=== PATIENT | female | born 1990 | race Caucasian/White ===

== ENCOUNTER 2017-09-11 15:58 | Emergency (ER) | payer OTHER, MEDICAID ==
[~2017-09-11 15:58] MED LIST: ACE3 PO; AMOX-559 PO; CIP500 PO; DIC10 PO; DOC240 PO; DOXY-260 PO; GUAI-545 PO; HYDR2TAB74 PO; IBU600 PO; IBU800 PO; LACT10SO58 PO; LOR5 PO; LOR5/325 PO; MET10 PO; METR-1 PO; MISO200T62 PO; MULT1CAP41 PO; MULTIVIT; NO ROUTINE MEDS; ONDA4TAB PO; PER PO; PREN-85 PO; QUET300T17 PO; [UNRECOGNIZED DRUG - CODE] PO
[2017-09-11 16:08] VITALS: BP 137/93
[2017-09-11] MEDS ORDERED: ONDANSETRON 4 MG ODT TABDP SL ONE (16:15)
[2017-09-11] MEDS ORDERED: APAP/HYDROCODONE 325/5 TAB PO ONE (16:15)
--- NOTE | 2017-09-11 16:21 | ER Report ---
History and Physical Time Seen By MD: 16:03 Hx. of Stated Complaint: Patient hit head . Patient having visual problems. 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 Was ducking down into to get into an area and hit her head on cinderblock. No loc. Pt has had symptoms since she hit her head. + headache, + nausea, + vomiting, + intermittent blurred vision. Pt thought she would feel better by now but still feeling poorly so came to ed. Pt denies neck pain. no extremity pain or weakness. Pt has hx of headaches but feels this is worse. Pt took nothing for pain or symptoms at home REVIEW OF SYSTEMS: Constitutional: No fever, no chills. Eyes: No discharge, + blurred vision ENT: No sore throat. Cardiovascular: No chest pain, no palpitations. Respiratory: No cough, no shortness of breath. Gastrointestinal: No abdominal pain, +nausea, + vomiting. Genitourinary: No hematuria. Musculoskeletal: No back pain. Skin: No rashes. Neurological: + headache. Allergies: Coded Allergies: No Known Drug Allergies (Verified , 01/10/17) Home Meds Discontinued Reported Medications Mifepristone (MIFEPREX) 200 Mg Tablet, 200 MG PO 01/10/17 Misoprostol (MISOPROSTOL) 200 Mcg Tablet, 200 MCG PO 01/10/17 Discontinued Scripts Hydromorphone Hcl (DILAUDID) 2 Mg Tablet, 2 MG PO Q4H Y for PAIN, #10 Prov:JESSICAWALTER DO 01/10/17 Amoxicillin/Pot Clav 875-125 Mg Tab (AUGMENTIN 875-125 TABLET) 1 Each Tablet, 1 TAB PO Q12H for infection, #14 TAB TAKE ONE TABLET BY MOUTH EVERY 12 HOURS Prov:JESSICAWALTER Ben DO 01/10/17 Past Medical/Surgical History pmhx: headaches Pshx: neg Reviewed Nurses Notes: Yes Old Medical Records Reviewed: Yes Hx Smoking: Yes Hx Substance Use Disorder: No Hx Alcohol Use: Yes (OCC) Constitutional Vital Sign - Last 24 Hours 09/11/17 16:08 Temp 98.7 Pulse 84 Resp 18 B/P (MAP) 137/93 Pulse Ox 96 O2 Delivery Room Air Physical Exam General Appearance: The patient is alert, has no immediate need for airway protection and no signs of toxicity. Eyes: Pupils equal and round no pallor or injection, EOMI, nl fundus b/l ENT: no pharyngeal erythema or exudates, Mucous membranes are moist, TM are nl b/l, neg hemotympanums Respiratory: There are no retractions, lungs are clear to auscultation. Cardiovascular: Regular rate and rhythm. pulses are equal and symmetrical Gastrointestinal: Abdomen is soft and non tender, no masses, bowel sounds normal, no guarding, no rigidity or rebound Neurological: Cranial nerves II-XII grossly intact, no sensory or motor loss Skin: Warm and dry, no rashes. Musculoskeletal: Neck is supple non tender, no vertebral tenderness Extremities are nontender, non swollen and have full range of motion. DIFFERENTIAL DIAGNOSIS: After history and physical exam differential diagnosis was considered for concussion, closed head injury, intracranial bleed Medical Decision Making ED Course/Re-evaluation ED Course 09/11/2017 5:14:46 pm Decision to Disposition Date: Sep 11, 2017 Decision to Disposition Time: 17:14 Depart Departure Latest Vital Signs Vital Signs Date Time Temp Pulse Resp B/P (MAP) Pulse Ox O2 Delivery O2 Flow Rate FiO2 09/11/17 16:08 98.7 84 18 137/93 96 Room Air Impression: Primary Impression: Concussion Condition: Improved Disposition: HOME OR SELF-CARE New Scripts Ondansetron (ZOFRAN ODT) 4 Mg Tab.rapdis 4 MG PO Q6-8H Y for NAUSEA/VOMITING, #15 TAB.MAGY Prov: JARETT ALDRIDGE V DO 09/11/17 Hydrocodone Bit/Acetaminophen (HYDROCODON-ACETAMINOPHEN 5-325) 1 Each Tablet 1 EACH PO Q4-6H Y for PAIN/HEADACHE, #10 TAB Prov: JARETT ALDRIDGE V DO 09/11/17 Departure Forms: ER Transition Record, Medications Reconciliation, Off Work/ School Form, School or Work Release?: Work Number of days to be released: 2 Patient Portal Information Patient Instructions: Concussion (GEN) Additional Instructions: zofran every 6 hours as needed for nausea Motrin (advil, ibuprofen) 600mg every 6 hours as needed for pain Lortab one every 6 hours as needed for severe pain. Follow up with your doctor. Problem Qualifiers Primary Impression: Concussion Encounter type: initial encounter Loss of consciousness presence/duration: without LOC Qualified Codes: S06.0X0A - Concussion without loss of consciousness, initial encounter JARETT ALDRIDGE DO Sep 11, 2017 16:21
--- NOTE | 2017-09-11 17:05 | RADIOLOGY IMAGING REPORT ---
FACILITY: [facility] PATIENT NAME: Elyssa Shah : 1990 MR: [id number] V: [id number] EXAM DATE: ORDERING PHYSICIAN: JARETT ALDRIDGE TECHNOLOGIST: Location: [facility] Patient: Elyssa Shah : 1990 Visit/Account:[id number] Date of Sevice: 09/11/2017 EXAMINATION: Head CT without intravenous contrast HISTORY: Hit head 5 days ago. Still with headache and vomiting. COMPARISON: None. TECHNIQUE: Contiguous axial images were obtained from the skull base to the vertex without intraven ous contrast. Sagittal and coronal reformatted images are also submitted. One of the following dose optimization techniques was utilized in the performance of this exam: Autom ated exposure control; adjustment of the mA and/or kV according to the patient's size; or use of an i terative reconstruction technique. Specific details can be referenced in the facility's radiology C T exam operational policy. FINDINGS: Brain and intracranial structures: Ventricles, sulci, and cisterns are normal in size. Zepeda-white ma tter differentiation is maintained. No midline shift, acute hemorrhage, acute infarct, or mass. Calvarium / scalp: Negative. No acute fracture. Skull base / visualized face: Negative. Visualized sinuses / orbits: Trace mucosal thickening in the maxillary sinuses and ethmoid air cells . IMPRESSION: No acute intracranial abnormality. Report Dictated By: Justin Reynoso MD at 09/11/2017 4:55 PM Report E-Signed By: Justin Reynoso MD at 09/11/2017 5:01 PM WSN:[id number]
[2017-09-11] MEDS ORDERED: ONDA4TAB PO (17:16)
[2017-09-11] MEDS ORDERED: LOR5/325 PO (17:16)
== END 2017-09-11 17:33 | disposition home or self-care (01) ==
LOC: ER 16:14
DX: S06.0X0A Concussion without loss of consciousness, initial encounter (principal)
CPT/HCPCS: 70450; 99283; S0119

== ENCOUNTER 2017-10-27 13:47 | Emergency (ER) | payer MEDICAID ==
[2017-10-27] MEDS ORDERED: NS(*) 0.9% 1000 ML BAG 1,000 ML IV ONE (13:56)
--- NOTE | 2017-10-27 13:58 | ER Report ---
History and Physical Time Seen By MD: 13:56 HPI/ROS CHIEF COMPLAINT: Right upper quadrant abdominal pain HISTORY OF PRESENT ILLNESS: 19 atrial female comes emergency Department today with 2 years of right upper quadrant pain mostly postprandial's been coming and going shortness of her family practice doctor today was concerned about at this point decided center rushed to emergency room for this pain she's had for over 2 years. Patient denies any nausea vomiting or diarrhea but has had some bilious emesis the last 48 hours patient denies any chest pain or shortness of breath or additional complaints is localized the right upper quadrant dull and aching sharp and stabbing with increased palpation to the area patient states that does happen usually after she eats about 30-45 minutes REVIEW OF SYSTEMS: Respiratory: No cough, no dyspnea. Cardiovascular: No chest pain, no palpitations. Gastrointestinal: Right upper quadrant abdominal pain Musculoskeletal: No back pain. Remainder of the 14 system rev: Yes Allergies: Coded Allergies: No Known Drug Allergies (Verified , 10/27/17) Home Meds Discontinued Scripts Ondansetron (ZOFRAN ODT) 4 Mg Tab.rapdis, 4 MG PO Q6-8H Y for NAUSEA/VOMITING, # 15 TAB.MAGY Prov:JARETT ALDRIDGE V DO 09/11/17 Hydrocodone Bit/Acetaminophen (HYDROCODON-ACETAMINOPHEN 5-325) 1 Each Tablet, 1 EACH PO Q4-6H Y for PAIN/HEADACHE, #10 TAB Prov:JARETT ALDRIDGE V DO 09/11/17 Reviewed Nurses Notes: Yes Old Medical Records Reviewed: Yes Hx Smoking: Yes Hx Substance Use Disorder: No Hx Alcohol Use: Yes (OCC) Constitutional Vital Sign - Last 24 Hours 10/27/17 10/27/17 10/27/17 10/27/17 13:50 13:54 14:00 14:05 Temp 98.5 Pulse 60 Resp 16 B/P (MAP) 121/68 121/68 (85) 109/63 (78) Pulse Ox 98 95 O2 Delivery Room Air 10/27/17 10/27/17 10/27/17 10/27/17 14:15 14:25 14:30 14:35 Pulse 74 73 70 63 B/P (MAP) 102/72 (82) Pulse Ox 96 93 92 10/27/17 10/27/17 10/27/17 14:40 14:45 14:55 Pulse 52 55 44 Pulse Ox 98 98 Physical Exam General Appearance: The patient is alert, has no immediate need for airway protection and no current signs of toxicity. [ ] Eyes: Pupils equal and round no injection. Respiratory: Chest is non tender, lungs are clear to auscultation. Cardiac: regular rate and rhythm [ ] Gastrointestinal: Pain with deep palpation right upper quadrant positive McBurney some mild pain to the epigastric area otherwise unremarkable no masses lesions no rebound or guarding Musculoskeletal: Neck: Neck is supple and non tender. Extremities have full range of motion and are non tender. Skin: No rashes or lesions. [ ] DIFFERENTIAL DIAGNOSIS: After history and physical exam differential diagnosis was considered for biliary colic cholelithiasis choledocholithiasis choline- induced pancreatitis gastritis Medical Decision Making Data Points Result Diagram: 10/27/17 1356 10/27/17 1356 Laboratory Hematology Test 10/27/17 13:52 10/27/17 13:56 Urine Color Yellow Urine Clarity Clear Urine pH 6.0 pH (4.8-9.5) Urine Specific Mobile 1.013 Urine Protein Negative mg/dL (NEGATIVE) Urine Glucose (UA) Negative mg/dL (NEGATIVE) Urine Ketones Negative mg/dL (NEGATIVE) Urine Blood Negative (NEGATIVE) Urine Nitrite Negative (NEGATIVE) Urine Bilirubin Negative (NEGATIVE) Urine Urobilinogen Negative mg/dL (0.2-1.9) Urine Leukocyte Esterase Negative (NEGATIVE) Urine RBC <1 /HPF (0-2/HPF) Urine WBC <1 /HPF (0-5/HPF) Urine Squamous Epithelial Cells Few /LPF (</=FEW) Urine Bacteria Negative /HPF (NONE-FEW) Urine Mucus None /HPF (NONE-FEW) Urine HCG, Qualitative Negative (NEGATIVE) Red Blood Count 5.45 M/uL (4.17-5.56) Mean Corpuscular Volume 89.3 fL (80.0-96.0) Mean Corpuscular Hemoglobin 31.2 pg (26.0-33.0) Mean Corpuscular Hemoglobin Concent 34.9 g/dL (32.0-36.0) Red Cell Distribution Width 12.7 % (11.5-14.5) Mean Platelet Volume 8.3 fL (7.2-11.1) Neutrophils (%) (Auto) 63.7 % (39.4-72.5) Lymphocytes (%) (Auto) 27.4 % (17.6-49.6) Monocytes (%) (Auto) 5.3 % (4.1-12.4) Eosinophils (%) (Auto) 2.9 % (0.4-6.7) Basophils (%) (Auto) 0.7 % (0.3-1.4) Nucleated RBC Relative Count (auto) 0.1 /100WBC Neutrophils # (Auto) 5.3 K/uL (2.0-7.4) Lymphocytes # (Auto) 2.3 K/uL (1.3-3.6) Monocytes # (Auto) 0.4 K/uL (0.3-1.0) Eosinophils # (Auto) 0.2 K/uL (0.0-0.5) Basophils # (Auto) 0.1 K/uL (0.0-0.1) Nucleated RBC Absolute Count (auto) 0.01 K/uL Prothrombin Time 12.1 seconds (12.0-14.4) Prothromb Time International Ratio 0.89 Activated Partial Thromboplast Time 26 seconds (23-35) Sodium Level 138 mmol/L (137-145) Potassium Level 4.1 mmol/L (3.5-5.0) Chloride Level 103 mmol/L (98-107) Carbon Dioxide Level 23 mmol/L (22-31) Blood Urea Nitrogen 13 mg/dl (7-18) Creatinine 0.70 mg/dl (0.52-1.04) Glomerular Filtration Rate Calc > 60.0 Random Glucose 85 mg/dl (75-110) Calcium Level 9.2 mg/dl (8.4-10.2) Total Bilirubin 0.6 mg/dl (0.2-1.3) Aspartate Amino Transf (AST/SGOT) 30 U/L (0-35) Alanine Aminotransferase (ALT/SGPT) 54 U/L (0-56) Alkaline Phosphatase 81 U/L (0-126) Total Protein 8.3 gm/dl (6.3-8.2) Albumin 4.6 g/dl (3.5-5.0) Lipase 63 U/L (23-300) Serum Alcohol < 10 mg/dl Chemistry Test 10/27/17 13:52 10/27/17 13:56 Urine Color Yellow Urine Clarity Clear Urine pH 6.0 pH (4.8-9.5) Urine Specific Mobile 1.013 Urine Protein Negative mg/dL (NEGATIVE) Urine Glucose (UA) Negative mg/dL (NEGATIVE) Urine Ketones Negative mg/dL (NEGATIVE) Urine Blood Negative (NEGATIVE) Urine Nitrite Negative (NEGATIVE) Urine Bilirubin Negative (NEGATIVE) Urine Urobilinogen Negative mg/dL (0.2-1.9) Urine Leukocyte Esterase Negative (NEGATIVE) Urine RBC <1 /HPF (0-2/HPF) Urine WBC <1 /HPF (0-5/HPF) Urine Squamous Epithelial Cells Few /LPF (</=FEW) Urine Bacteria Negative /HPF (NONE-FEW) Urine Mucus None /HPF (NONE-FEW) Urine HCG, Qualitative Negative (NEGATIVE) White Blood Count 8.4 k/uL (4.5-11.0) Red Blood Count 5.45 M/uL (4.17-5.56) Hemoglobin 17.0 g/dL (12.0-16.0) Hematocrit 48.7 % (34.0-47.0) Mean Corpuscular Volume 89.3 fL (80.0-96.0) Mean Corpuscular Hemoglobin 31.2 pg (26.0-33.0) Mean Corpuscular Hemoglobin Concent 34.9 g/dL (32.0-36.0) Red Cell Distribution Width 12.7 % (11.5-14.5) Platelet Count 253 K/uL (150-450) Mean Platelet Volume 8.3 fL (7.2-11.1) Neutrophils (%) (Auto) 63.7 % (39.4-72.5) Lymphocytes (%) (Auto) 27.4 % (17.6-49.6) Monocytes (%) (Auto) 5.3 % (4.1-12.4) Eosinophils (%) (Auto) 2.9 % (0.4-6.7) Basophils (%) (Auto) 0.7 % (0.3-1.4) Nucleated RBC Relative Count (auto) 0.1 /100WBC Neutrophils # (Auto) 5.3 K/uL (2.0-7.4) Lymphocytes # (Auto) 2.3 K/uL (1.3-3.6) Monocytes # (Auto) 0.4 K/uL (0.3-1.0) Eosinophils # (Auto) 0.2 K/uL (0.0-0.5) Basophils # (Auto) 0.1 K/uL (0.0-0.1) Nucleated RBC Absolute Count (auto) 0.01 K/uL Prothrombin Time 12.1 seconds (12.0-14.4) Prothromb Time International Ratio 0.89 Activated Partial Thromboplast Time 26 seconds (23-35) Glomerular Filtration Rate Calc > 60.0 Calcium Level 9.2 mg/dl (8.4-10.2) Total Bilirubin 0.6 mg/dl (0.2-1.3) Aspartate Amino Transf (AST/SGOT) 30 U/L (0-35) Alanine Aminotransferase (ALT/SGPT) 54 U/L (0-56) Alkaline Phosphatase 81 U/L (0-126) Total Protein 8.3 gm/dl (6.3-8.2) Albumin 4.6 g/dl (3.5-5.0) Lipase 63 U/L (23-300) Serum Alcohol < 10 mg/dl Coagulation Test 10/27/17 13:56 Prothrombin Time 12.1 seconds Prothromb Time International Ratio 0.89 Activated Partial Thromboplast Time 26 seconds Toxicology Test 10/27/17 13:56 Serum Alcohol < 10 mg/dl Urinalysis Test 10/27/17 13:52 Urine Color Yellow Urine Clarity Clear Urine pH 6.0 pH (4.8-9.5) Urine Specific Mobile 1.013 Urine Protein Negative mg/dL (NEGATIVE) Urine Glucose (UA) Negative mg/dL (NEGATIVE) Urine Ketones Negative mg/dL (NEGATIVE) Urine Blood Negative (NEGATIVE) Urine Nitrite Negative (NEGATIVE) Urine Bilirubin Negative (NEGATIVE) Urine Urobilinogen Negative mg/dL (0.2-1.9) Urine Leukocyte Esterase Negative (NEGATIVE) Urine RBC <1 /HPF (0-2/HPF) Urine WBC <1 /HPF (0-5/HPF) Urine Squamous Epithelial Cells Few /LPF (</=FEW) Urine Bacteria Negative /HPF (NONE-FEW) Urine Mucus None /HPF (NONE-FEW) Urine HCG, Qualitative Negative (NEGATIVE) ED Course/Re-evaluation ED Course ED course is dictated below Re-evaluation ED clinical course medical decision making 19-year-old female with right upper quadrant epigastric pain ultrasound was negative chest x-ray normal rest for labs are unremarkable including lipase is most likely is a for gastritis advised her to eat intermediate project manager meals with less spicy foods and follow up with primary care Decision to Disposition Date: Oct 27, 2017 Decision to Disposition Time: 15:35 Depart Departure Latest Vital Signs Vital Signs Date Time Temp Pulse Resp B/P (MAP) Pulse Ox O2 Delivery O2 Flow Rate FiO2 10/27/17 14:55 44 98 10/27/17 14:30 102/72 (82) 10/27/17 13:50 98.5 16 Room Air Impression: Primary Impression: Gastritis Condition: Improved Disposition: HOME OR SELF-CARE Referrals: MELISSA WEBER MD 5 Days New Scripts No Active Prescriptions or Reported Meds Patient Instructions: Diet for Stomach Ulcers and Gastritis (ED), Gastritis (DC ) TATA MAY MD Oct 27, 2017 13:58
[2017-10-27] MEDS ORDERED: ONDANSETRON 4 MG/2 ML VIAL IVP ONE (14:00)
[2017-10-27 14:08] LABS: PLATELET COUNT, AUTOMATED 253 K/uL (150-450)
[2017-10-27 14:19] LABS: INR 0.89
--- NOTE | 2017-10-27 14:26 | RADIOLOGY IMAGING REPORT ---
FACILITY: [facility] PATIENT NAME: Elyssa Shah : 1990 MR: [id number] V: [id number] EXAM DATE: ORDERING PHYSICIAN: TATA MAY TECHNOLOGIST: Location: [facility] Patient: Elyssa Shah : 1990 Visit/Account:[id number] Date of Sevice: 10/27/2017 CHEST PA AND LAT INDICATION: Cough COMPARISON: None available FINDINGS: The cardiac silhouette is normal in size. No pneumothorax. Clear lungs. No acute osseous abnormality. Mild leftward lumbar scoliosis. No pleural fluid. IMPRESSION: 1. No acute finding. 2. Mild lumbar scoliosis. Report Dictated By: Deshaun Rollins MD at 10/27/2017 2:22 PM Report E-Signed By: Deshaun Rollins MD at 10/27/2017 2:23 PM WSN:[id number]
--- NOTE | 2017-10-27 15:29 | RADIOLOGY IMAGING REPORT ---
[place] [facility] [place]: Elyssa Shah : 1990 MR: [id number] V: [id number] EXAM DATE: ORDERING PHYSICIAN: TATA MAY TECHNOLOGIST: [place] [facility] [place] Elyssa Shah : 1990 Visit/Account:[id number] Date of Sevice: 10/27/2017 GALLBLADDER HISTORY: Right upper quadrant pain x2 days, vomiting x2-3 days COMPARISON: None. FINDINGS: Gallbladder: Unremarkable; no stones or sludge. Liver: Borderline enlarged although no focal mass identified. Common duct: Normal, 2.4 mm diameter. Pancreas: Partially obscured by bowel, visualized aspects unremarkable. Right kidney: Unremarkable measuring 11.3 cm in length Upper abdominal aorta and IVC: Patent. Ascites: None visualized. IMPRESSION: Borderline hepatomegaly The gallbladder appears sonographically unremarkable Report Dictated By: Nancy Castillo MD at 10/27/2017 3:22 PM Report E-Signed By: Nancy Castillo MD at 10/27/2017 3:24 PM WSN:[id number]
[2017-10-27 15:36] VITALS: BP 111/68
== END 2017-10-27 15:39 | disposition home or self-care (01) ==
LOC: ER 13:49
DX: K29.70 Gastritis, unspecified, without bleeding (principal)
CPT/HCPCS: 71046; 76705; 81001; 81025; 83690; 85025; 85610; 85730; 96374; 99284; G0480; J2405; 80320; 82040; 82247; 82310; 82374; 82435; 82565; 82947; 84075; 84132; 84155; 84295; 84450; 84460; 84520

== ENCOUNTER → 2017-11-24 | Outpatient (CLI) | payer MEDICAID ==
[~2017-11-24] MED LIST changes: +ALB18R INH; +DESO1TAB70 PO; +ESCI10TA8 PO
== END ==
LOC: LAB 14:41
PROVIDERS: ATTEND Emergency Medicine
DX: R10.9 Unspecified abdominal pain (principal)
CPT/HCPCS: 82274; 87045; 87177; 87338

== ENCOUNTER → 2017-12-06 | Outpatient (CLI) | payer MEDICAID | LOC: LAB 15:20 | PROVIDERS: ATTEND Emergency Medicine | DX: R10.9 Unspecified abdominal pain (principal); R19.7 Diarrhea, unspecified | CPT/HCPCS: 36415; 82784; 83516 ==

== ENCOUNTER 2018-04-05 12:09 | Emergency (ER) | payer SELFPAY ==
--- NOTE | 2018-04-05 12:19 | ER Report ---
History and Physical Time Seen By MD: 12:19 Hx. of Stated Complaint: pt broke tooth 7 months ago, started with pain 4 days ago HPI/ROS CHIEF COMPLAINT: Tooth pain HISTORY OF PRESENT ILLNESS: 28-year-old female patient presents to emergency room with complaint of dental pain. Patient states that she broke her tooth proximal was 7 months ago. She states she's been dealing with pain related to that intermittently for the past several months. She states that she's been having pain persistent for the past 4 days. She states the pain is worse with any type of eating or drinking. She has been doing saltwater rinses, she has been using clove with mild improvement. Patient states she is felt feverish and chills. She denies any nausea, vomiting or diarrhea. She has not been taking anything for pain, and she has a history of fatty liver disease which she attributes to alcohol abuse. Allergies: Coded Allergies: No Known Drug Allergies (Verified , 10/27/17) Home Meds Active Scripts Amoxicillin 500 Mg Tab (AMOXICILLIN 500 MG TAB) 500 Mg Tablet, 1 TAB PO Q8H, # 30 TAB Prov:ANGELICA VALLEJO VOLLEYBALL COACH 04/05/18 Discontinued Reported Medications Desogestrel-Ethinyl Estradiol (Isibloom 28 Day Tablet) 0.15 Mg-0.03 Mg Tablet, 1 TAB PO DAILY 11/22/17 Albuterol Sulfate (VENTOLIN HFA) 18 Gm Inh, 1-2 PUFF INH Q4H Y for PRN, INH 11/22/17 Escitalopram Oxalate (ESCITALOPRAM OXALATE) 10 Mg Tablet, 10 MG PO QDAY, TAB 11/22/17 Past Medical/Surgical History Patient has a past medical history of migraines, hypertension, fatty liver disease, frequent UTIs, HPV, PID, osteoarthritis, bipolar, suicide attempt. Patient has a surgical history of wisdom teeth removal. Patient has a family medical history of psychiatric problems. Reviewed Nurses Notes: Yes Hx Smoking: Yes Smoking Status: Current: Every Day Smoker Exposure to Second Hand Smoke?: Yes Hx Substance Use Disorder: No Hx Alcohol Use: No (OCC) Constitutional Vital Sign - Last 24 Hours 04/05/18 04/05/18 12:11 12:39 Temp 98.8 Pulse 71 63 Resp 20 18 B/P (MAP) 123/81 116/80 (92) Pulse Ox 96 96 O2 Delivery Room Air Room Air Physical Exam General Appearance: The patient is alert, has no immediate need for airway protection and no current signs of toxicity. ENT: Tympanic membranes are pearly-savage, auditory canals are patent, mucous membranes are moist. Patient's teeth are in poor repair, tooth #13 is broken off with the lateral half missing. Respiratory: Chest is non tender, lungs are clear to auscultation. Cardiac: regular rate and rhythm Gastrointestinal: Abdomen is soft and non tender, no masses, bowel sounds normal. DIFFERENTIAL DIAGNOSIS: After history and physical exam differential diagnosis was considered for toothache, dental abscess, infected cavity. Medical Decision Making ED Course/Re-evaluation ED Course Patient was admitted on exam room, history and physical were obtained. Differential diagnoses were considered. On examination lungs are clear, heart is regular, teeth are in poor disrepair, tooth #13 is broken with lateral half missing. I did discuss with the patient and doing a dental block. Patient refused at this time. We will go ahead and put her on amoxicillin. We discussed doing any pain medication, which patient refused. We will go ahead and discharge her home. Prescription was sent in to [facility]. I discussed with patient that the prescription should be $4. Patient verbalized understanding and agreement with plan. Decision to Disposition Date: Apr 05, 2018 Decision to Disposition Time: 12:34 Depart Departure Latest Vital Signs Vital Signs Date Time Temp Pulse Resp B/P (MAP) Pulse Ox O2 Delivery O2 Flow Rate FiO2 04/05/18 12:39 63 18 116/80 (92) 96 Room Air 04/05/18 12:11 98.8 Impression: Primary Impression: Toothache Condition: Improved Disposition: HOME OR SELF-CARE Referrals: MELISSA WEBER MD (PCP) New Scripts Amoxicillin 500 Mg Tab (AMOXICILLIN 500 MG TAB) 500 Mg Tablet 1 TAB PO Q8H, #30 TAB Prov: ANGELICA VALLEJO 04/05/18 Patient Instructions: Toothache (ED) Additional Instructions: You may take Ibuoprofen as needed for pain. Rinse mouth with warm salt water after every meal. Eat soft foods. Follow up with your dentist as soon as possible, call to make an appointment. Return to the ER if condition worsens. ANGELICA VALLEJO Apr 05, 2018 12:19
[2018-04-05] MEDS ORDERED: AMOX500T10 PO (12:35)
[2018-04-05 12:39] VITALS: BP 116/80
== END 2018-04-05 12:38 | disposition home or self-care (01) ==
LOC: ER 12:14
DX: K08.89 Other specified disorders of teeth and supporting structures (principal); I10 Essential (primary) hypertension; K70.0 Alcoholic fatty liver; F31.9 Bipolar disorder, unspecified; F17.210 Nicotine dependence, cigarettes, uncomplicated
CPT/HCPCS: 99282

== ENCOUNTER → 2018-07-13 | Outpatient (CLI) | payer MEDICAID ==
[~2018-07-13] MED LIST changes: +AMOX500T10 PO; +ESCI20TA38 PO; +LINA290C PO; +POLY17PO25 PO
== END ==
LOC: RESP 19:40
PROVIDERS: ATTEND Emergency Medicine
DX: G47.30 Sleep apnea, unspecified (principal); G47.36 Sleep related hypoventilation in conditions classified elsewhere

== ENCOUNTER 2018-07-15 16:48 | Emergency (ER) | payer MEDICAID ==
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
[2018-07-15] MEDS ORDERED: LORazepam 2 MG/ML VIAL IVP ONE (17:25)
[2018-07-15] MEDS ORDERED: IOPAMIDOL 76% 75 ML INFUS BTL 75 ML ONE (17:30)
[2018-07-15] MEDS ORDERED: NS(*) 0.9% 50 ML BAG 50 ML ONE (17:30)
[2018-07-15 17:33] LABS: PLATELET COUNT, AUTOMATED 257 K/uL (150-450)
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
[2018-07-15 19:00] VITALS: BP 116/78
== END 2018-07-15 19:06 ==
LOC: ER 17:01
DX: S60.212A Contusion of left wrist, initial encounter (principal); S50.01XA Contusion of right elbow, initial encounter; T71.9XXA Asphyxiation due to unspecified cause, initial encounter; F17.210 Nicotine dependence, cigarettes, uncomplicated
CPT/HCPCS: 70498; 73080; 73110; 81001; 84703; 85025; 99284; J2060; J7050; Q9967; 82040; 82247; 82310; 82374; 82435; 82565; 82947; 84075; 84132; 84155; 84295; 84450; 84460; 84520

== ENCOUNTER → 2018-08-20 | Outpatient (CLI) | payer MEDICAID | LOC: RESP 07:18 | PROVIDERS: ATTEND Emergency Medicine | DX: J98.4 Other disorders of lung (principal) | CPT/HCPCS: 94060; 94726; 94729 ==

== ENCOUNTER → 2018-09-19 | Outpatient (CLI) | payer MEDICAID ==
[~2018-09-19] MED LIST changes: +IBUP600T22 PO; +NIC10R INH; +NICOTROL CARTRIDGE PO
== END ==
LOC: AMB 23:56
PROVIDERS: ATTEND Nurse Practitioner
DX: S61.512A Laceration without foreign body of left wrist, initial encounter (principal); S91.332A Puncture wound without foreign body, left foot, initial encounter; X78.1XXA Intentional self-harm by knife, initial encounter
CPT/HCPCS: A0425; A0427

== ENCOUNTER 2018-09-20 00:16 | Emergency (ER) | payer MEDICAID ==
[~2018-09-20 00:16] MED LIST changes: -IBUP600T22 PO; -NIC10R INH; -NICOTROL CARTRIDGE PO
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
[2018-09-20 01:42] LABS: PLATELET COUNT, AUTOMATED 280 K/uL (150-450)
[2018-09-20 03:00] VITALS: BP 154/98
[2018-09-20] MEDS ORDERED: ESCI10TA8 PO (17:17)
[2018-09-20] MEDS ORDERED: DESO1TAB70 PO (17:17)
[2018-09-21] MEDS ORDERED: ESCI20TA38 PO (09:18)
[2018-09-21] MEDS ORDERED: IBUP600T22 PO (09:19)
[2018-09-21] MEDS ORDERED: NICOTROL CARTRIDGE PO (09:20)
[2018-09-21] MEDS ORDERED: NIC10R INH (09:20)
[2018-09-21] MEDS ORDERED: ALB18R INH (09:22)
== END 2018-09-20 03:26 ==
LOC: ER 00:36
DX: S61.512A Laceration without foreign body of left wrist, initial encounter (principal); S91.312A Laceration without foreign body, left foot, initial encounter; X78.1XXA Intentional self-harm by knife, initial encounter; F31.9 Bipolar disorder, unspecified; F20.9 Schizophrenia, unspecified; R45.851 Suicidal ideations; F10.120 Alcohol abuse with intoxication, uncomplicated
CPT/HCPCS: 12004; 80305; 81001; 81025; 83735; 84443; 85025; 99284; G0480; 80320; 80329; 82040; 82247; 82310; 82374; 82435; 82565; 82947; 84075; 84132; 84155; 84295; 84450; 84460; 84520

== ENCOUNTER 2018-09-20 02:38 | Inpatient (IN) | payer MEDICAID ==
[~2018-09-20] VITALS: Ht 172.7 cm; Wt 94.8 kg
[2018-09-20] MEDS ORDERED: OLANZapine 10 MG VIAL IM ONLY PRN (02:45)
[2018-09-20] MEDS ORDERED: OLANZapine 5 MG TAB PO PRN (02:45)
[2018-09-20] MEDS ORDERED: diphenhydrAMINE 50 MG/ML VIAL IM PRN (02:45)
[2018-09-20] MEDS ORDERED: WATER STERILE 10 ML VIAL IM ONLY PRN (02:45)
[2018-09-20] MEDS ORDERED: LORazepam 2 MG/ML VIAL IM PRN (02:45)
[2018-09-20] MEDS ORDERED: ALBUTEROL 8 GM INHALER INH PRN ×2 (02:55→07:10)
[2018-09-20] MEDS ORDERED: MAG HYD/AL HYD/SIMETH 30ML UDC PO PRN (02:55)
[2018-09-20] MEDS: ACETAMINOPHEN 325 MG TAB PO PRN ×3 (03:35→19:27)
[2018-09-20 04:02] VITALS: BP 128/95
[2018-09-20] MEDS ORDERED: NICOTINE INH SYSTEM 10 MG/INH INH PRN (04:45)
[2018-09-20] MEDS: MULTIVITAMINS TAB PO SCH (08:35)
[2018-09-20] MEDS: ESCITALOPRAM OXALATE 10 MG TAB PO SCH (10:12)
[2018-09-20] MEDS: IBUPROFEN 600 MG TAB PO PRN ×2 (10:35→19:26)
[2018-09-20] MEDS ORDERED: INFLUENZA VIRUS VAC 0.5ML SYR IM ONLY ONE (12:55)
[2018-09-20 14:11] VITALS: BP 140/84
[2018-09-20] MEDS ORDERED: DESO1TAB70 PO (17:17)
[2018-09-20] MEDS ORDERED: ESCI10TA8 PO (17:17)
[2018-09-20] MEDS ORDERED: hydrOXYzine PAMOATE 25 MG CAP PO PRN (17:30)
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
--- NOTE | 2018-09-20 18:09 | BHS - Psychiatric Evaluation ---
ER - Title 25 MHE Evaluation Title 25 Evaluation Patient Detained By: Law Enforcement Referral Source: professional: :Law Enforcement Date Patient Detained: Sep 20, 2018 Time Patient Detained: 00:03 Date Long Term Expires: Sep 24, 2018 Time Long Term Expires: 00:03 Legal Status: Police Hold: No Legal Status: Residence: [facility] Resident, State Resident Assessment Data Provided By: Patient (Patient significant other is visiting with her now.), Law Enforcement, Other Source ([facility] and [facility] professionals) HPI/ROS: From Dr. Vazquez Beckwith, "28-year-old female brought in by EMS from home after a large self-inflicted laceration was inflicted on herself over her left wrist. It extends deep into the subcutaneous tissues. Patient appears alcohol intoxicated on arrival. She admits that she has schizophrenia and that she self-inflicted this laceration as she watched herself do it." Admit due to SI or Attempt: Yes Suicide Plan: Has Plan with Access Alcohol or Drugs Involved: Yes Is Patient Info Reliable: Yes (Patient says she is upset that her circumstances became so overwhelming that she was suicidal.) Is Collateral Info Reliable: Yes Current Home Psych Meds: Zyprexa and Lexapro Mental Status Exam General Appearance: Casual, Good Eye Contact, Cooperative Speech: Clear Mood: Dysthmic/Depressed (Tears up while talking about pressured she is facing.) Affect: Sad, Tearful (Appropriate for the situation.) Thought Process: Organized, Goal Directed (Feels as though she is improving, she says.) Thought Content: Suicidal Ideation (Denies any current ideation) Cognition: Alert & Oriented-Person, Alert & Oriented-Place, Alert & Oriented- Time Memory: Immediate, Recent, Remote Insight Judgment: Poor Hallucinations: Denies Delusions: Denies Current Risk & History Current Dangerous Risk Assessm: Current Suicide Ideation (Ideation and behavior became significant and critical. ) Past Dangerous Risk Assessm: Suicide Ideation-last 6mo Prior Alcohol/Drug Abuse Admits substance use history. Previous Suicide Attempt: Past - High Lethality Previous Psychiatric Illness: Yes Previous Psychiatric Treatment: Yes Risk Assessment & Disposition Evaluated Risk Assessment: From Dr. Vazquez Beckwith, "Patient reports she's been in the care of mental health since she is 8 years old. She's been on various medications. She's had 2 previous suicidal attempts. She states that she grew up without parents. Internal medicine clinic notes note 2 previous suicide attempts 1996 and 2006, patient was hospitalized for both. There is also notation of alcoholism, PTSD, depression." Impression: Primary Impression: Depression with suicidal ideation Meets Mental Illness Req.: Yes Meets Dangerousness Req.: Yes Emergency Long Term to be: Upheld Date of Decision: Sep 20, 2018 Time of Decision: 18:09 Patient is Medically Stable at: Yes Disposition: [facility] Sep 20, 2018 18:09
[2018-09-20] MEDS ORDERED: NICOTINE CARTRIDGE 1 EA PO PRN (19:05)
[2018-09-20] MEDS ORDERED: ESTRADIOL/NORETHINDR ACETATE 1 EA TAB PO SCH (21:00)
[2018-09-21 06:32] VITALS: BP 130/85
[2018-09-21] MEDS: ESCITALOPRAM OXALATE 10 MG TAB PO SCH (08:23)
[2018-09-21] MEDS: MULTIVITAMINS TAB PO SCH (08:23)
[2018-09-21] MEDS ORDERED: ESCI20TA38 PO (09:18)
[2018-09-21] MEDS ORDERED: IBUP600T22 PO (09:19)
[2018-09-21] MEDS ORDERED: NIC10R INH (09:20)
[2018-09-21] MEDS ORDERED: NICOTROL CARTRIDGE PO (09:20)
[2018-09-21] MEDS ORDERED: ALB18R INH (09:22)
--- NOTE | 2018-09-21 15:07 | BHS Discharge Summary ---
[facility] Discharge Summary Pxvh-ul-Kuci Encounter Date: Sep 21, 2018 Ukmq-wp-Wntz Encounter Time: 09:00 Reason-Hosp/Final Diag (DSM-V): (1) Persistent depressive disorder Hospital Course & Plan: Pt was admitted to [facility] on suicide precautions. She was cooperative and engaged throughout her treatment. She consistently reported that she was not suicidal, and would not have cut her wrist if she hadn't been intoxicated. Discussed importance of sobriety. Her boyfriend who is very supportive came for team meeting. They discussed the possibility of couples therapy. She will follow up with her therapist at [facility]. We did elect to increase her lexapro dose to 20mg daily, which was well tolerated. (2) Alcohol use disorder, mild, abuse (3) Laceration of left foot Status: Acute (4) Laceration of left wrist Status: Acute Physical Exam Latest Vital Signs Vital Signs 09/20/18 09/21/18 04:02 06:32 Temp 98.4 Pulse 77 Resp 16 B/P (MAP) 130/85 (100) Pulse Ox 98 O2 Delivery Room Air Mental Status Exam General Appearance: Casual, Well Groomed, Good Eye Contact, Cooperative, Polite, Good Interaction Speech: Clear, Spontaneous, Normal Rate, Normal Rhythm, Normal Volume, Normal Tone Mood: Euthymic Affect: Full and Appropriate, Calm Thought Process: Organized, Logical, Goal Directed Thought Content: No Suicidal Ideation, No Homicidal Ideation, No Delusions, No Auditory Halllucinations, No Visual Hallucinations, No Thought Broadcasting, No Ideas of Reference, No Obsessions, No Compulsions, No Other Sensorium: Clear Cognition: Alert & Oriented-Person, Alert & Oriented-Place, Alert & Oriented- Time Memory: Immediate, Recent, Remote Intelligence: Average Insight Judgment: Fair Departure Condition: Improved Discharge to: Home Discharge Instructions Home Meds Reported Medications Albuterol Sulfate (VENTOLIN HFA) 18 Gm Inh, 2 PUFF INH Q6H PRN for SHORTNESS OF BREATH, INH 09/21/18 Nicotine (NICOTROL) 10 Mg/Inh Ctr, 10 MG INH PRN PRN for NICOTINE REPLACEMENT 09/21/18 [Nicotrol Cartridge] No Conflict Check, 1 EA PO PRN PRN for NICOTINE REPLAC EMENT 09/21/18 Ibuprofen (IBUPROFEN) 600 Mg Tablet, 1 TAB PO Q6H PRN for PAIN, TAB 2/1/19 Escitalopram Oxalate (LEXAPRO) 20 Mg Tablet, 20 MG PO QAM, TAB 09/21/18 Desogestrel-Ethinyl Estradiol (Isibloom 28 Day Tablet) 0.15 Mg-0.03 Mg Tablet, 1 TAB PO QDAY 09/20/18 Discontinued Scripts Escitalopram Oxalate (LEXAPRO) 20 Mg Tablet, 10 MG PO QDAY, #90 TAB 3 Refills Prov:MELISSA WEBER MD 05/22/18 Multpiple Antipsychotics Used: No Diet: Regular Activity: As Tolerated Special Instructions: Take medications as prescribed. Follow up with outpatient provider for medication management. Follow up with outpatient therapy at [facility]. Call Crisis Line should symptoms return. YEHUDA PENNY MD Sep 21, 2018 15:07
== END 2018-09-21 10:55 | disposition home or self-care (01) | DRG 881 ==
LOC: BHS 02:38
PROVIDERS: ADMIT Psychiatry & Neurology Psychiatry; ATTEND Psychiatry & Neurology Psychiatry
DX: F34.1 Dysthymic disorder (principal); R45.851 Suicidal ideations; S61.512A Laceration without foreign body of left wrist, initial encounter; S91.312A Laceration without foreign body, left foot, initial encounter; F10.120 Alcohol abuse with intoxication, uncomplicated; Y90.4 Blood alcohol level of 80-99 mg/100 ml; Z62.810 Personal history of physical and sexual abuse in childhood; Z91.5 Personal history of self-harm; Z81.1 Family history of alcohol abuse and dependence; Z81.8 Family history of other mental and behavioral disorders; Z81.3 Family history of other psychoactive substance abuse and dependence; Z23 Encounter for immunization
CPT/HCPCS: 90674; J3535

== ENCOUNTER → 2019-01-11 | Outpatient (CLI) | payer MEDICAID ==
[~2019-01-11] MED LIST changes: +FLUT1DIS27 IH; +IBUP600T22 PO; +IBUP800T37 PO; +NIC10R INH; +NICOTROL CARTRIDGE PO
--- NOTE | 2019-01-11 15:38 | RADIOLOGY IMAGING REPORT ---
FACILITY: [facility] PATIENT NAME: Elyssa Shah : 1990 MR: [id number] V: [id number] EXAM DATE: ORDERING PHYSICIAN: CELI DAVIS TECHNOLOGIST: [place] [facility] [place] : 1990 Visit/Account:[id number] Date of Sevice: 01/11/2019 CALCANEUS (HEEL) LEFT COMPARISONS: None. ADDITIONAL PERTINENT HISTORY: Left heel pain after injury 12/21/2018 FINDINGS: Osseous structures: Moderate size plantar calcaneal spur. No bony fractures. Joint spaces: Negative. Surrounding soft tissues: Negative. IMPRESSION: 1. Moderate-sized retrocalcaneal spur. 2. No acute appearing bony abnormalities. Report Dictated By: Chilango Pina MD at 01/11/2019 3:33 PM Report E-Signed By: Chilango Pina MD at 01/11/2019 3:34 PM WSN:[id number]
== END ==
LOC: RAD 14:23
PROVIDERS: ATTEND Nurse Practitioner Primary Care
DX: M79.672 Pain in left foot (principal)

== ENCOUNTER → 2019-01-16 | Outpatient (REF) | payer MEDICAID ==
[2019-01-16 11:10] LABS: PLATELET COUNT, AUTOMATED 259 K/uL (150-450)
== END ==
PROVIDERS: ATTEND Nurse Practitioner Family
DX: R10.816 Epigastric abdominal tenderness (principal)
CPT/HCPCS: 82150; 83690; 85025; G0480; 80320; 82040; 82247; 82310; 82374; 82435; 82565; 82947; 84075; 84132; 84155; 84295; 84450; 84460; 84520

== ENCOUNTER 2019-02-28 14:40 | Emergency (ER) | payer MEDICAID ==
[2019-02-28] MEDS ORDERED: AMOXICILLIN 875 MG TAB PO ONE (16:10)
[2019-02-28] MEDS ORDERED: AMOX-362 PO (16:21)
--- NOTE | 2019-02-28 16:23 | ER Report ---
History and Physical Time Seen By MD: 15:20 Hx. of Stated Complaint: STATES HAS ABSCESSED TOOTHE HPI/ROS CHIEF COMPLAINT: Tooth pain HISTORY OF PRESENT ILLNESS: 28-year-old female presents with pain in tooth #2. She states that she has had pain for one week. She has been trying to take Tylenol, aspirin, ibuprofen and now no longer has relief. She has not eaten today because of the pain. She also feels fever and chills, and nausea. She states she vomited today due to the pain. She states she has had symptoms like this before. She has no insurance and therefore has follow-up with the [facility] next week for an intake. She also believes she is . Her last missed her period was 3 months ago. She does not want further testing for at this point. She denies vaginal bleeding and is currently getting insurance together for OB care. She did just see [facility] today. Pain is severe, radiates to cheek, ear, without swelling or discharge. REVIEW OF SYSTEMS: Respiratory: No cough, no dyspnea. Cardiovascular: No chest pain, no palpitations. Gastrointestinal: No vomiting, no abdominal pain. Musculoskeletal: No back pain. Remainder of the 14 system rev: Yes Allergies: Coded Allergies: No Known Drug Allergies (Verified , 02/28/19) Home Meds Active Scripts Amoxicillin (AMOXICILLIN) 500 Mg Capsule, 1 CAP PO Q8H for 7 Days, #21 CAPSULE 0 Refills Prov:SALAS JACOBSON MD 02/28/19 Fluticasone/Salmeterol (ADVAIR 100-50 DISKUS) 1 Each Disk.w.dev, 1 EACH IH BID, #1 INHALER 2 Refills Prov:MELISSA WEBER MD 12/05/18 Discontinued Reported Medications Nicotine (NICOTROL) 10 Mg/Inh Ctr, 10 MG INH PRN PRN for NICOTINE REPLACEMENT 09/21/18 Ibuprofen (IBUPROFEN) 600 Mg Tablet, 1 TAB PO Q6H PRN for PAIN, TAB 09/21/18 Desogestrel-Ethinyl Estradiol (Isibloom 28 Day Tablet) 0.15 Mg-0.03 Mg Tablet, 1 TAB PO QDAY 09/20/18 Discontinued Scripts Ibuprofen (IBUPROFEN) 800 Mg Tablet, 1 TAB PO Q8H PRN for PAIN, #30 TAB 0 Refills Prov:CELI DAVIS DNP, GOPHERMAN-BC 01/11/19 Albuterol Sulfate (VENTOLIN HFA) 18 Gm Inh, 2 PUFF INH Q6H PRN for SHORTNESS OF BREATH, #1 INH 3 Refills Prov:MELISSA WEBER MD 12/05/18 Escitalopram Oxalate (LEXAPRO) 20 Mg Tablet, 20 MG PO QAM, #30 TAB 0 Refills Prov:MELISSA WEBER MD 11/13/18 Hx Smoking: Yes Smoking Status: Current: Every Day Smoker Exposure to Second Hand Smoke?: Yes Hx Substance Use Disorder: No Hx Alcohol Use: Yes Constitutional Vital Sign - Last 24 Hours 02/28/19 02/28/19 14:54 16:41 Temp 98.5 Pulse 81 82 Resp 20 16 B/P (MAP) 129/82 127/72 (90) Pulse Ox 96 92 O2 Delivery Room Air Room Air Physical Exam General Appearance: The patient is alert, has no immediate need for airway protection and no current signs of toxicity. Eyes: Pupils equal and round no injection. Respiratory: normal respirations Cardiac: regular rate Musculoskeletal: Extremities have full range of motion Skin: No rashes or lesions. Dental - pt has tenderness to percussion at tooth #2 She has no swelling/fluctuance. No other edema. DIFFERENTIAL DIAGNOSIS: After history and physical exam differential diagnosis was considered for dental abscess, fracture, cellulitis, or other cause of symptoms. Medical Decision Making ED Course/Re-evaluation ED Course Pt has findings c/w periapical abscess. She has complete relief of pain with dental block. Will start amoxicillin; as this is also safe with . Procedure I performed dental block after verbal consent, using 2mL 0.5% bupivicaine, both laterally and medially. Pt had complete relief without complication Decision to Disposition Date: Feb 28, 2019 Decision to Disposition Time: 16:20 Depart Departure Latest Vital Signs Vital Signs Date Time Temp Pulse Resp B/P (MAP) Pulse Ox O2 Delivery O2 Flow Rate FiO2 02/28/19 16:41 82 16 127/72 (90) 92 Room Air 02/28/19 14:54 98.5 Impression: Primary Impression: Periapical abscess Condition: Improved Disposition: HOME OR SELF-CARE Referrals: MELISSA WEBER MD (PCP) 1 Week New Scripts Amoxicillin (AMOXICILLIN) 500 Mg Capsule 1 CAP PO Q8H for 7 Days, #21 CAPSULE 0 Refills Prov: SALAS JACOBSON MD 02/28/19 Patient Instructions: Dental Abscess (ED) Additional Instructions: As we discussed, I recommend you follow up as soon as possible with a dentist for definitive treatment. Your prescription should cost < $4 at [facility]. Please return immediately for uncontrolled pain, fevers, swelling, or any concerns. SALAS JACOBSON MD Feb 28, 2019 16:22
[2019-02-28 16:41] VITALS: BP 127/72
== END 2019-02-28 16:42 | disposition home or self-care (01) ==
LOC: ER 14:46
DX: K04.7 Periapical abscess without sinus (principal)
CPT/HCPCS: 99283

== ENCOUNTER 2019-03-02 15:50 | Emergency (ER) | payer SELFPAY ==
[~2019-03-02 15:50] MED LIST changes: +AMOX-362 PO
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
[2019-03-02 18:00] VITALS: BP 117/67
--- NOTE | 2019-03-02 18:03 | RADIOLOGY IMAGING REPORT ---
FACILITY: [facility] PATIENT NAME: Elyssa Shah : 1990 MR: [id number] V: [id number] EXAM DATE: ORDERING PHYSICIAN: ARIN FORD TECHNOLOGIST: Location: [facility] - [place] Patient: Elyssa Shah : 1990 Visit/Account:[id number] Date of Sevice: 03/02/2019 EXAMINATION: Transvaginal first trimester OB ultrasound HISTORY: Vaginal bleeding. COMPARISON: None. LMP: Uncertain. Possibly 12/23/2018, 9 weeks and 6 days.. FINDINGS: Exam is positive for a single live intrauterine . A gestational sac, yolk sac, and po le are visualized. [place]-rump length measures 0.52 cm, corresponding with a gestational age of 6 wee ks and 2 days. cardiac activity is visualized at 122 bpm. The gravid uterus is unremarkable. No discrete subchorionic hemorrhage is visualized. The right ovary measures 1.5 x 2.4 x 2.3 cm and demonstrates normal vascularity with Doppler. The lef t ovary was poorly visualized. No abnormal adnexal mass is visualized. No free fluid in the pelvis. IMPRESSION: 1. Single live intrauterine . 2. [place]-rump length corresponds with a gestational age of 6 weeks and 2 days, for an MAGY of 10/24/2019 . 3. heart rate 122 bpm. 4. No visualized subchorionic hemorrhage. 5. Unremarkable right ovary. Poor visualization of the left ovary. No free fluid in the pelvis. Report Dictated By: Richard Mcarthur MD at 03/02/2019 5:49 PM Report E-Signed By: Richard Mcarthur MD at 03/02/2019 5:57 PM WSN:[id number]
== END 2019-03-02 18:27 | disposition home or self-care (01) ==
LOC: ER 16:00
DX: O20.0 Threatened abortion (principal); Z3A.01 Less than 8 weeks gestation of pregnancy; Z37.0 Single live birth
CPT/HCPCS: 76817; 81001; 81025; 84702; 87491; 87591; 99283

== ENCOUNTER → 2019-03-18 | Outpatient (CLI) | payer MEDICAID ==
[2019-03-18 15:08] LABS: PLATELET COUNT, AUTOMATED 297 K/uL (150-450)
== END ==
LOC: LAB 13:54
PROVIDERS: ATTEND Obstetrics & Gynecology
DX: Z34.81 Encounter for supervision of other normal pregnancy, first trimester (principal)
CPT/HCPCS: 81001; 85025; 86592; 86703; 86762; 86850; 86900; 86901; 87088; 87340; 87491; 87591

== ENCOUNTER → 2019-03-21 | Outpatient (CLI) | payer MEDICAID | LOC: LAB 08:09 | PROVIDERS: ATTEND Student in an Organized Health Care Education/Training Program | DX: Z11.8 Encounter for screening for other infectious and parasitic diseases (principal); Z11.3 Encounter for screening for infections with a predominantly sexual mode of transmission | CPT/HCPCS: 87491; 87591 ==

== ENCOUNTER 2019-04-01 19:22 | Emergency (ER) | payer SELFPAY ==
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
[2019-04-01] MEDS ORDERED: NS(*) 0.9% 50 ML BAG 50 ML ONE ×2 (20:28→21:01)
[2019-04-01] MEDS ORDERED: IOPAMIDOL 76% 100 ML INFUS BTL 100 ML ONE ×2 (20:28→21:01)
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
[2019-04-01 21:51] VITALS: BP 147/78
[2019-04-01] MEDS ORDERED: ONDANSETRON 4 MG/2 ML VIAL IVP ONE (22:00)
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
[2019-04-01] MEDS ORDERED: ACET/HYDROC 5/325MG TH ER ONLY 2 TAB/BOTTLE PO ONE (23:00)
[2019-04-01] MEDS ORDERED: APAP/HYDROCODONE 325/5 TAB PO ONE (23:00)
[2019-04-01] MEDS ORDERED: LOR5/325 PO (23:02)
== END 2019-04-01 23:10 | disposition home or self-care (01) ==
LOC: ER 19:37
DX: O26.891 Other specified pregnancy related conditions, first trimester (principal); S02.2XXA Fracture of nasal bones, initial encounter for closed fracture; R51 Headache; Y04.2XXA Assault by strike against or bumped into by another person, initial encounter
CPT/HCPCS: 70450; 70486; 70498; 76801; 96374; 99284; J2405; J7050; Q9967